=== PATIENT | male | born 1965 | race Caucasian/White ===

== ENCOUNTER 2018-05-20 01:37 | Outpatient (CLI) | payer BC, SELFPAY ==
[2018-05-20 12:59] LABS: Cholesterol 228 mg/dL (50-200); HDL Cholesterol 57 mg/dL (40-60); LDL CHOLESTEROL 155 mg/dL (<100); Triglyceride 122 mg/dL (30-150)
[2018-05-21 10:30] LABS: PSA, Screening 1.3 ng/ml (0-3.5)
== END 2018-05-20 01:57 ==
PROVIDERS: PCP Emergency Medicine; Visit Provider Emergency Medicine
DX: Z00.00 Encounter for general adult medical examination without abnormal findings (principal); Z13.220 Encounter for screening for lipoid disorders; Z12.5 Encounter for screening for malignant neoplasm of prostate
CPT/HCPCS: 36415; 80061; 83721; 84153

== ENCOUNTER 2019-01-06 00:52 | Outpatient (CLI) | payer BC, SELFPAY ==
--- NOTE | 2019-01-06 13:29 | DI.COMBO_ITS ---
SYMPTOMS/DIAGNOSIS: LEFT BREAST MASS, N63.20 MAMMOGRAM AND LEFT BREAST ULTRASOUND: Mammograms were interpreted according to the usual protocol including computer analysis with CAD system, tomosynthesis and C view imaging. Mammogram and left breast ultrasound are interpreted in conjunction. There is asymmetric retroareolar radiodensity in the left breast compared to the right. No discrete mass or clumped microcalcification identified in either breast. Ultrasound of the left breast shows nonspecific, mildly heterogeneous retroareolar tissue with no discrete mass. The findings as described are consistent with gynecomastia. CONCLUSION: Findings consistent with left gynecomastia. No other significant findings.
== END 2019-01-06 01:12 ==
PROVIDERS: PCP Emergency Medicine; Visit Provider Emergency Medicine
DX: N63.20 Unspecified lump in the left breast, unspecified quadrant (principal); N62 Hypertrophy of breast
CPT/HCPCS: 76642; 77062; 77066; G0279

== ENCOUNTER 2019-05-22 11:27 | Outpatient (CLI) | payer BC, SELFPAY ==
--- NOTE | 2019-05-22 11:57 | DI.RAD_ITS ---
EXAM: XR SHOULDER RT COMPLETE 2+V INDICATION: right shoulder pain. COMPARISON: No exams were available for comparison TECHNIQUE: 2D digital imaging was performed. FINDINGS: There is mild spurring from the AC joint and undersurface of the acromion. Spurring is also noted at the glenoid. Humeral head appears normally positioned. No tendon or joint space calcifications are seen. IMPRESSION: Mild degenerative changes.
[2019-05-25 10:16] LABS: Beta-HCG, Quant, Tumor Marker <0.6 IU/L (<1.4)
[2019-05-25 11:49] LABS: FSH 16.4 mIU/ml (1.4-18.1)
[2019-05-26 14:17] LABS: Testosterone, Free 7.96 ng/dL (3.87-14.7); Testosterone, Total 362 ng/dL (240-950)
== END 2019-05-22 11:47 ==
PROVIDERS: PCP Emergency Medicine; Visit Provider Emergency Medicine
DX: M25.511 Pain in right shoulder (principal); M75.81 Other shoulder lesions, right shoulder
CPT/HCPCS: 36415; 84402; 84403; 73030; 83001; 83002; 84702

== ENCOUNTER 2019-08-12 02:13 | Outpatient (CLI) | payer BC, SELFPAY ==
--- NOTE | 2019-08-12 14:43 | DI.MAMMO_ITS ---
EXAM: MG MAMMO DIAGNOSTIC BI CLINICAL HISTORY: LEFT GYNECOMASTIA N62 HYPERTROPHY OF BREAST TECHNIQUE: Bilateral full field digital CC and MLO mammographic images were obtained with 3D tomosyn thesis and utilizing computer aided detection (CAD). COMPARISON: January,. FINDINGS: The left breast is composed of scattered fibroglandular densities, breast density category B. The ri ght breast is composed of mainly fatty density. There is a small amount of breast tissue in the righ t subareolar region. The left breast shows asymmetric tissue development without evidence of focal m ass or suspicious calcifications. The findings are consistent with asymmetric gynecomastia. There i s some decrease in left breast density when compared with the previous exam. IMPRESSION: BI-RADS category 2, negative with benign findings of asymmetric gynecomastia. There has been some im provement when compared with the previous exam.
== END 2019-08-12 02:33 ==
PROVIDERS: PCP Emergency Medicine; Visit Provider Emergency Medicine
DX: N62 Hypertrophy of breast (principal)
CPT/HCPCS: 77062; 77066; G0279

== ENCOUNTER 2020-09-06 09:28 | Outpatient (REF) | payer BC, SELFPAY ==
[2020-09-06 14:40] LABS: Calculated LDL 124 mg/dL (<100); Cholesterol 193 mg/dL (<200); HDL Cholesterol 52 mg/dL (40-60); Triglyceride 86 mg/dL (<150)
[2020-09-06 20:27] LABS: PSA, Diagnostic 2.2 ng/mL (0.0-3.5)
== END 2020-09-06 09:29 | disposition home or self-care (01) ==
LOC: LBN 09:28
PROVIDERS: PCP Emergency Medicine; Visit Provider Emergency Medicine
DX: E78.5 Hyperlipidemia, unspecified (principal); C61 Malignant neoplasm of prostate
CPT/HCPCS: 80061; 84153

== ENCOUNTER 2020-09-29 01:14 | Outpatient (CLI) | payer BC, SELFPAY ==
--- NOTE | 2020-09-29 08:00 | DI.US_ITS ---
EXAM: US ABDOMEN CLINICAL HISTORY: RUQ EPIGASTRIC PAIN, R10.13 TECHNIQUE: Ultrasound of complete upper abdomen performed using standard protocol. COMPARISON: None FINDINGS: There is no ascites evident. LIVER: There are no hepatic lesions evident nor obvious dilatation of intrahepatic ducts. GALLBLADDER/BILIARY: There are no gallstones. No gallbladder wall edema nor pericholecystic fluid. The common hepatic duct isnot dilated, measuring 3mm at the level of tessa hepatis. PANCREAS: There is no evidence of pancreatic mass nor dilatation of the pancreatic duct. SPLEEN: The spleen is not enlarged and there are no intrasplenic lesions evident. KIDNEYS:Kidneys exhibit normal size with no evidence of solid mass, calculus, nor hydronephrosis. No cortical cysts evident. ABDOMINAL AORTA: There is no evidence of abdominal aortic aneurysm. IVC: Normal diameter where visualized. IMPRESSION: 1. No evidence of cholelithiasis nor dilatation of the biliary tree. 2. No other significant ultrasound findings in the upper abdomen. 3. There is no ascites. DATA REPOSITORY:
== END 2020-09-29 01:15 ==
LOC: DI 01:14
PROVIDERS: PCP Emergency Medicine; Visit Provider Emergency Medicine
DX: R10.13 Epigastric pain (principal)
CPT/HCPCS: 76700

== ENCOUNTER 2022-08-01 02:32 | Outpatient (CLI) | payer BC, SELFPAY ==
[2022-08-01 07:34] LABS: Abs Immature Grans 0.01 10^3/uL (0.0-0.06); Absolute Basophil Count 0.03 10^3/uL (0.0-0.2); Absolute Eosinophil Count 0.05 10^3/uL (0.0-0.7); Absolute Lymphocyte Count 1.37 10^3/uL (1.2-3.4); Absolute Neutrophil Count 3.58 10^3/uL (1.2-6.7); Basophils % 0.6; Eosinophils % 0.9; HCT 41.5 % (40.0-50.0); HGB 14.8 g/dL (13.5-17.5); Immature Grans % 0.2; Lymphocytes % 25.2; MCH 32.2 pg (27.0-33.0); MCHC 35.7 % (32.0-36.0); MCV 90 fL (80-95); MPV 9.2 fL (8.0-11.0); Monocytes % 7.4; Neutrophils % 65.7; Platelet Count 258 10^3/uL (130-400); RBC 4.59 10^6/uL (4.36-5.78); RDW-SD 39.7 fL; WBC 5.44 10^3/uL (4.4-10.8)
[2022-08-01 08:23] LABS: ALT 63 U/L (16-63); AST 37 U/L (15-37); Albumin 4.1 g/dL (3.4-5.0); Alkaline Phosphatase 80 U/L (46-116); Anion Gap 7.1 mmol/L (3-11); BUN 15 mg/dL (7-18); Bilirubin, Total 0.5 mg/dL (0.2-1.0); CO2 27.9 mmol/L (21.0-32.0); CREATININE 0.9 mg/dL (0.70-1.30); Calcium 8.9 mg/dL (8.5-10.1); Chloride 103 mmol/L (98-107); Estimated GFR 98.38 (mL/min/1.73m2); Glucose 110 mg/dL (74-106); Potassium 4.1 mmol/L (3.5-5.1); Sodium 138 mmol/L (136-145); Total Protein 7.3 g/dL (6.4-8.2)
[2022-08-01 18:03] LABS: PSA, Screening 2.1 ng/mL (<=3.5)
== END 2022-08-01 02:33 | disposition home or self-care (01) ==
LOC: LBO 02:32
PROVIDERS: PCP Nurse Practitioner Family; Visit Provider Surgery
DX: E78.5 Hyperlipidemia, unspecified (principal); F17.200 Nicotine dependence, unspecified, uncomplicated; K57.90 Diverticulosis of intestine, part unspecified, without perforation or abscess without bleeding; Z12.5 Encounter for screening for malignant neoplasm of prostate; Z80.0 Family history of malignant neoplasm of digestive organs
CPT/HCPCS: 36415; 80053; 84153; 85025

== ENCOUNTER 2022-08-17 07:04 | Day surgery (SDC) | payer BC, SELFPAY ==
[2022-08-17 07:00] VITALS: BP 119/83; PULSE 89; RESP 18; TEMP 36.1; O2SAT 97
[2022-08-17] MEDS: Lactated Ringers 1,000 ML 80 ML IV (07:34)
--- NOTE | 2022-08-17 08:08 | ANES.PREOP_ITS ---
General Info Date of Service Date Performed: 08/17/22 Height: 6 ft Weight: 97.5 kg Body Mass Index (BMI): 29.1 Surgical Procedure: Operation Date: 08/17/22 08:35 Proposed Procedure Side Surgeon p Colonoscopy Scooter Lozano MD Meds Allergies and Home Medications Allergies Allergy/AdvReac Type Severity Reaction Status Date / Time No Known Allergies Allergy Verified 08/17/22 07:20 Home Medication Medication Instructions Recorded loratadine 10 mg tablet (Claritin) 10 mg PO DAILY 03/06/19 triamcinolone acetonide 0.1 % 1 applic topical BID PRN foot rash 09/06/20 topical ointment #30 grams bisacodyl 5 mg tablet,delayed 5 mg PO ONCE colonscopy bowel prep 07/20/22 release (Dulcolax (bisacodyl)) #4 tabs polyethylene glycol 3350 17 238 g PO ONCE colonoscopy prep 07/20/22 gram/dose oral powder #238 grams Current Visit Medications: Current Medications Generic Name Dose Route Start Last Admin Trade Name Martin PRN Reason Stop Dose Admin Ringer's Solution 1,000 mls @ 80 mls/hr 08/17/22 06:00 08/17/22 07:34 IV 08/17/22 23:59 80 mls/hr INFUSION NOLA Administration IV Miscellaneous Supplies 1 each 08/17/22 06:00 Iv Access IV 08/17/22 23:59 DIRECTED NOLA Sodium Chloride 0 ml 08/17/22 06:00 Normal Saline Flush 10 Ml Syr IV 08/17/22 23:59 PRN PRN Sodium Chloride 0 ml 08/17/22 06:00 Normal Saline 10 Ml Vial IJ 08/17/22 23:59 DIRECTED PRN Sterile Water 0 ml 08/17/22 06:00 Water,Injection,Sterile 10 Ml Vial IJ 08/17/22 23:59 DIRECTED PRN PFSH Active Problems Active Problems: Problem Status Onset Code Diverticulosis K57.90 Ventral hernia K43.9 Gynecomastia, male N62 Borderline hyperlipidemia E78.5 Tendinitis of right rotator cuff M75.81 Smoker 09/02/13 F17.200 Heavy alcohol use 09/02/13 Z78.9 Tubular adenoma of colon D12.6 Family history of colon cancer 02/08/14 Z80.0 Decreased sense of smell 09/16/15 R43.8 Medical History Medical History Gynecomastia, male Tubular adenoma Surgical History Surgical History Colonoscopy - IV Sedation (01/04/17) Colonoscopy - MAC 2005 2013 Tobacco Smoking/Tobacco Use Status: Former Tobacco Use Passive smoking exposure: Yes Second hand exposure: No Alcohol Alcohol Intake: current Alcohol intake frequency: 0-2 drinks per day Alcohol type: beer, wine and hard liquor Substance Use Substance use: Occasionally Substance use type: marijuana Vital Signs and Lab Results Vital Signs Most Recent Vital Signs in EMR: Most Recent Vital Signs Temp Pulse Resp BP Pulse Ox 36.1 C L 89 18 119/83 97 08/17/22 07:00 08/17/22 07:00 08/17/22 07:00 08/17/22 07:00 08/17/22 07:00 Lab Results Blood Type / Crossmatch: No Data to Display Complete Blood Count: White Blood Count 5.44 10^3/uL (4.4-10.8) 08/01/22 07:30 Red Blood Count 4.59 10^6/uL (4.36-5.78) 08/01/22 07:30 Hemoglobin 14.8 g/dL (13.5-17.5) 08/01/22 07:30 Hematocrit 41.5 % (40.0-50.0) 08/01/22 07:30 Platelet Count 258 10^3/uL (130-400) 08/01/22 07:30 Complete Metabolic Panel: Sodium 138 mmol/L (136-145) 08/01/22 07:30 Potassium 4.1 mmol/L (3.5-5.1) 08/01/22 07:30 Chloride 103 mmol/L (98-107) 08/01/22 07:30 Carbon Dioxide 27.9 mmol/L (21.0-32.0) 08/01/22 07:30 BUN 15 mg/dL (7-18) 08/01/22 07:30 Creatinine 0.9 mg/dL (0.70-1.30) 08/01/22 07:30 Est GFR (CKD-EPI 2020) 98.38 (mL/min/1.73m2) 08/01/22 07:30 Calcium 8.9 mg/dL (8.5-10.1) 08/01/22 07:30 Albumin 4.1 g/dL (3.4-5.0) 08/01/22 07:30 Glucose 110 mg/dL (74-106) H 08/01/22 07:30 Liver Function Panel: Alanine Aminotransferase (ALT/SGPT) 63 U/L (16-63) 08/01/22 07: 30 Aspartate Amino Transf (AST/SGOT) 37 U/L (15-37) 08/01/22 07:30 Coagulation Panel: No Data to Display Cardiac Panel: No Data to Display Arterial Blood Gas: No Data to Display Venous Blood Gas: No Data to Display Pancreas Panel: No Data to Display Thyroid Panel: No Data to Display Infectious Disease: No Data to Display Blood Cultures: No Data to Display Toxicology Panel: No Data to Display Anesthesia Assessment and Plan Anesthesia History Personal History: No History of Anesthesia Complications Family History: No Family History of Anesthesia Complications Exercise Tolerance Exercise Tolerance: Metabolic Equivalents>4 Pertinent Negatives Pertinent Negatives: No Symptoms of GERD, No Major Cardiovascular Symptoms or Complaints and No Major Pulmonary Symptoms or Complaints Cardiac & Pulmonary Exam Cardiac Exam: Normal S1/S2 Heart Sounds Pulmonary Exam: Clear Bilateral Breath Sounds Implantable Cardiac Device Does patient have a Pacemaker or an ICD?: No Airway Exam Known Difficult Airway: No Mallampati Class: 2 Mouth Opening: Normal (> 3cm) Thyromental Distance: Greater than 3 cm Neck Range of Motion: Full ROM Neck Circumference: Normal Teeth Condition: Normal Dentition ASA Classification ASA Score: ASA 2 Emergency Case?: No NPO Status NPO Status: NPO Clears >2 hours, Solids >8 hours Anesthesia Plan Resuscitation Status: Full Code Anesthesia Technique: General Anesthesia Airway Planned: Natural Airway Monitors Used: Standard Monitors
[2022-08-17 08:10] VITALS: BMI 29.1
--- NOTE | 2022-08-17 08:13 | COLE_ITS ---
Date of service: 08/17/22 Time of Service: 08:48 Colonoscopy Report Procedure Description: Procedures performed: 1. Colonoscopy 2. Snare polypectomy x3 3. Ablation/fulguration/destruction of polyps x5 Preoperative diagnosis: Surveillance colonoscopy Postoperative diagnosis: Diverticulosis, colon polyps Surgeon: Robe Lozano Anesthesia: Viet Indication for procedure: 57-year-old man does not have any symptoms, he has a history of colon cancer: His father from colon cancer in his 60s. He has had a sessile serrated adenoma removed in the past. No intra-abdominal surgery. Findings: In the transverse colon a 5-7 mm sessile polyp was removed with hot snare technique. In the sigmoid colon another 3-5 mm sessile polyp was removed with hot snare technique. In the proximal rectum a polypoid bunch of 3 or 4 polyps in a cluster was removed with a hot snare. This was about 7-10 mm in overall size. Rectum multiple 2-3 mm sessile/flat polyps were seen that may be hyperplastic but because of the history I ablated/destroyed all of these with the tip of the hot snare. Surveillance/follow-up recommendations: 3 years Complications: None Blood loss: Minimal Prep: Excellent Procedure in detail: Written consent was obtained from the patient who was in ag reement with the risks, benefits and indications of the procedure.? We went to the endoscopy suite and laid the patient in left lateral decubitus position.? Anesthesia was administered which was tolerated well.? A timeout was performed and when we are all in agreement we began the procedure. Digital rectal exam and visual examination was performed and within normal limits.? A well?lubricated colonoscope was advanced without difficulty all the way to the cecum identified by the ileocecal valve, and triangular folds and appendiceal orifice.? It was then slowly withdrawn.?? Retroflexion was performed in the rectum.? The findings/interventions are noted above. The scope was then removed and the patient tolerated the procedure well and was then taken back to the PACU in hemodynamically stable condition.
--- NOTE | 2022-08-17 08:30 | BOWEL_PTH ---
PATIENT: Viet Grimm LOC: [facility] U#:[id number] AGE/SX: 57/M ROOM: RE08/17/[address]: Scooter Lozano : 1965 BED: DIS: 08/17/2022 SPEC #: [id number] RECD: 08/17/22 11:40 STATUS: VENTURA REJulia #: [id number] GONSALO: 08/17/22 08:[address]: Scooter Lozano DEPT: Surgical Specimen RECD BY: Xiomara Duke ENTERED: 08/17/22 11:43 SP TYPE: Bowel OTHR DR: Delmar Felix DNP Tissues: 1 - BIOPSY BOWEL 2 - BIOPSY BOWEL 3 - BIOPSY BOWEL Procedures: GROSS AND MICRO LEVEL 4 Comments: [id number]
[2022-08-17 08:45] VITALS: BP 136/73; PULSE 94; RESP 18; TEMP 35.9; O2SAT 95
[2022-08-17 09:06] VITALS: BP 127/84; PULSE 91; RESP 18; TEMP 36; O2SAT 95
--- NOTE | 2022-08-17 09:25 | W.ANESPOSTOP ---
Postoperative Evaluation Date, Time and Location Date Performed: 08/17/22 Time Performed: 09:25 Patient Location: Day Surgery Unit Vital Signs Most Recent Imported Vital Signs: Most Recent Vital Signs Temp Pulse Resp BP Pulse Ox 36.0 C L 91 H 18 127/84 95 08/17/22 09:06 08/17/22 09:06 08/17/22 09:06 08/17/22 09:06 08/17/22 09:06 Assessment Mental Status: Awake (Alert & Oriented to Patient Baseline) Airway and Respiratory Function: Patent airway with normal (patient baseline) respiratory exam Cardiovascular Function: Hemodynamically Stable Hydration Status: Adequately Hydrated Nausea & Vomiting: No Nausea or Vomiting Pain: Pt. Denies Any Pain Peripheral Nerve Block: Patient did not receive a nerve block
== END 2022-08-17 09:31 | disposition home or self-care (01) ==
PROVIDERS: PCP Nurse Practitioner Family; Visit Provider Student in an Organized Health Care Education/Training Program
PROC: 0DJD8ZZ Inspection of Lower Intestinal Tract, Via Natural or Artificial Opening Endoscopic (ICD-10-PCS; CPT 45378; principal; 2022-08-17 08:30)
DX: Z12.11 Encounter for screening for malignant neoplasm of colon (principal); K63.5 Polyp of colon; K62.1 Rectal polyp; Z86.010 Personal history of colon polyps; Z80.0 Family history of malignant neoplasm of digestive organs; K57.30 Diverticulosis of large intestine without perforation or abscess without bleeding
CPT/HCPCS: 45388; 45385; 88305